=== PATIENT | female | born 1950 | race Caucasian/White ===

== ENCOUNTER 2017-04-01 17:08 | Emergency (ER) | payer MEDICARE ==
[2017-04-01 17:39] LABS: BASOPHILS 0.6 % (0.0-2.0); EOSINOPHILS 2.1 % (0.0-6.0); EOSINOPHILS# 0.2 X 10^3uL (0.0-0.4); HEMATOCRIT 42.5 % (36.0-48.0); HEMOGLOBIN 14.8 g/dL (12.0-16.0); LYMPHOCYTES 32.6 % (20.0-40.0); LYMPHOCYTES# 2.4 X 10^3uL (0.8-3.8); MEAN CELL VOLUME 96.9 fL (80.0-100.0); MEAN CORPUS. HGB CONCENTRATION 34.9 g/dL (32.0-36.0); MEAN CORPUSCULAR HEMOGLOBIN 33.8 pg (29.0-35.0); MEAN PLATELET VOLUME 7.5 fL (7.4-10.4); MONOCYTES 10.3 % (2.0-10.0); MONOCYTES# 0.8 X 10^3uL (0.2-1.0); NEUTROPHILS 54.4 % (54.0-75.0); NEUTROPHILS# 3.9 X 10^3uL (2.6-6.7); PLATELET COUNT 314 X 10^3uL (130-440); RED BLOOD COUNT 4.39 X 10^6uL (4.20-6.10); RED CELL DISTRIBUTION WIDTH 11.9 % (11.5-14.5); WHITE BLOOD COUNT 7.4 X 10^3uL (3.9-10.7)
[2017-04-01] MEDS ORDERED: LORazepam 2 MG/ML INJ ONE (17:43)
[2017-04-01 17:44] LABS: BLOOD UREA NITROGEN 22 mg/dL (7-17); CALCIUM 9.3 mg/dL (8.4-10.2); CHLORIDE 106 mmol/L (98-107); CREATININE 1.1 mg/dL (0.5-1.0); EST GLOMERULAR FILTRATION RATE 53 mL/min; GLUCOSE 107 mg/dL (70-100); MAGNESIUM 2.2 mg/dL (1.6-2.3); POTASSIUM 4.1 mmol/L (3.5-5.1); SODIUM 141 mmol/L (137-145)
[2017-04-01 17:59] LABS: TROPONIN I < 0.012 ng/mL (0.00-0.034)
--- NOTE | 2017-04-01 18:36 | ER PHYSICIAN DOCUMENTATION ---
Physician Documentation [facility] Name:Germaine Lee Age:66 yrs Sex:Female :1950 Arrival Date:04/01/2017 Time:17:07 BedTrauma-C Private MD: Jose Clarke Disposition: 04/03 10:21 Chart complete. tl1 Disposition: 04/01/17 18:08 Discharged to Home/Self Care. Impression: Palpitations. - Condition is Good. - Discharge Instructions: PALPITATIONS. - Medical Reconciliation form form. - Follow up: Brian Smith MD; When: 2 - 3 days; Reason: Recheck today's complaints, Continuance of care. Follow up: Karlene Sage DO; When: 2 - 3 days; Reason: Recheck today's complaints, Continuance of care. - Problem is new. - Symptoms are resolved. - Notes: YOU DO NOT APPEAR TO BE HAVING A WORRISOME CARDIAC EMERGENCY AT THIS TIME, BUT YOU COULD BE HAVING AN ABNORMALLY FAST RHYTHM. A HOLTER MONITOR MAY BE HELPFUL. HPI: 04/01 17:07 This 66 yrs old Female presents to ER via Private Vehicle with complaints of 1 Palpitations and Nausea. 17:07 She has a h/o aortic insufficiency, for which she sees a cracking unit operator at [facility] in [address] She also has a h/o anxiety which has been more problematic, recently over the past few months, and is treated with lexapro for this. This afternoon, at dinner at [facility], she had the abrupt onset of palpitations that were fast and regular, associated with anxiety, dyspnea, nausea and diaphoresis. She was brought here immediately, by her . She denies chest pain. The palpitations have now resolved. She has some RF for CAD including age and tobacco (quit smoking 2 years ago). This is similar to her usual episodes, but the shortness of breath, diaphoresis and dizziness are not typical. She had a holter monitor a year or two ago, shich was apparently non diagnostic.. Historical: - Allergies: SULFA (SULFONAMIDES); Latex; - Home Meds: 1. Lexapro 20 mg oral tab 1 tab once daily 2. aspirin 325 mg oral tab 1 tab once daily 3. atorvastatin 20 mg oral tab 1 tab once daily 4. Acyclovir Oral 5. Ativan 0.5 mg oral tab as needed 6. diltiazem HCl 120 mg oral cpER 1 cap once daily 7. tramadol 50 mg oral tab as needed not to exceed 8 tablets per 24hrs - PMHx: HEART VALVE LEAK; ANXIETY; PANIC ATTACKS; - PSHx: Hysterectomy; - Tetanus: > 10 years. - Ebola Screening: : Patient negative for fever greater than or equal to 101.5 degrees Fahrenheit, and additional compatible Ebola Virus Disease symptoms. Patient denies exposure to infectious person. Patient denies travel to an Ebola-affected area in the 21 days before illness onset. No symptoms or risks identified at this time. . - Immunization history: Flu Vaccine >1 year. - Social history: Smoking status: Patient states former smoker of tobacco. ROS: 17:00 Cardiovascular: Positive for palpitations, Negative for chest pain, edema, orthopnea, tl1 paroxysmal nocturnal dyspnea. 17:00 Abdomen/GI: Positive for nausea, Negative for abdominal pain, vomiting, diarrhea, hematemesis, black/tarry stool, rectal bleeding. 17:00 Neuro: Positive for dizziness, Negative for altered mental status, gait disturbance, headache, loss of consciousness, near syncope. Exam: 17:00 Head/Face: Normocephalic, atraumatic. tl1 17:00 Eyes: Pupils equal round and reactive to light, extra-ocular motions intact. Lids and tl1 lashes normal. Conjunctiva and sclera are non-icteric and not injected. Cornea within normal limits. Periorbital areas with no swelling, redness, or edema. 17:00 Constitutional: The patient appears alert, awake, non-diaphoretic, non-toxic, well developed, well hydrated, well groomed, well nourished, anxious. 17:00 Cardiovascular: Rate: normal, Rhythm: regular, Heart sounds: murmur, systolic, grade 2 over 6, heard in the aortic area. 17:00 Respiratory: Respirations: normal, Breath sounds: are normal. 17:00 Abdomen/GI: Palpation: abdomen is soft and non-tender. 17:00 Skin: Exam negative for acute changes. tl1 17:00 Neuro: Exam negative for acute changes. Vital Signs: 17:21 BP 148 / 62; Pulse 79; Resp 18; Temp 98; Pulse Ox 92% on R/A; Weight 77.11 kg; Height 5 lc ft. 1 in. (154.94 cm); Pain 0/10; 17:39 BP 118 / 59; Pulse 70; Resp 16; Pulse Ox 91% on R/A; Pain 0/10; lc 18:19 BP 119 / 40; Pulse 72; Resp 16; Pulse Ox 93% on R/A; Pain 0/10; lc 18:34 Pulse 70; Resp 16; Pulse Ox 93% on R/A; Pain 0/10; lc 17:21 Body Mass Index 32.12 (77.11 kg, 154.94 cm) MDM: 17:20 Patient medically screened. tl1 17:26 ECG:. tl1 17:34 EKG attached tg 18:30 Differential diagnosis: Dysrhthmia, panic attack. doubt ACS, PE, Other serious tl1 pathology. Data reviewed: vital signs, nurses notes, lab test result(s), cardiac enzymes, CBC, electrolytes, hepatic panel, TSH. Data reviewed: and as a result, I will discharge patient. Data interpreted: senior laboratory technician: Pulse oximetry:. Counseling: I had a detailed discussion with the patient and/or guardian regarding: the historical points, exam findings, and any diagnostic results supporting the discharge/admit diagnosis, lab results, radiology results, the need for outpatient follow up, for a recheck, of today's symptoms, a cracking unit operator. Response to treatment: the patient's symptoms have resolved after treatment, and as a result, I will discharge patient. 04/01 17:59 Order name: CBC AUTO DIF, MDIF/RMOR IF IND; Complete Time: 10:21 EDMS 04/01 18:07 Interpretation: Normal: WHITE BLOOD COUNT 7.4; HEMOGLOBIN 14.8; HEMATOCRIT 42.5; tl1 PLATELET COUNT 314. 04/01 17:59 Order name: BASIC METABOLIC PANEL; Complete Time: 10:21 EDMS 04/01 18:07 Interpretation: SODIUM 141; POTASSIUM 4.1; CHLORIDE 106; CARBON DIOXIDE 23; GLUCOSE tl1 107; BLOOD UREA NITROGEN 22; CREATININE 1.1; EST GLOMERULAR FILTRATION RATE 53; CALCIUM 9.3. 04/01 17:59 Order name: MAGNESIUM; Complete Time: 10:21 EDMS 04/01 18:07 Interpretation: Normal: MAGNESIUM 2.2. tl1 04/01 17:59 Order name: TROPONIN I; Complete Time: 10:21 EDMS /04 18:07 Interpretation: Normal: TROPONIN I < 0.012. tl1 / 18:00 Order name: DDIMER; Complete Time: 10:21 EDMS / 18:07 Interpretation: Normal: DDIMER 219. tl1 /04 18:16 Order name: THYROID STIMULATING HORMONE; Complete Time: 10:21 EDMS 0606 10:21 Interpretation: Normal: THYROID STIMULATING HORMONE 2.50. tl1 0606 11:43 Order name: CHEST; SINGLE VIEW 54370 EDMS /04 17:23 Order name: 12-lead EKG; Complete Time: 17:28 tl1 /04 17:23 Order name: Iv Saline Lock; Complete Time: 17:28 tl1 04/01 17:23 Order name: Place Patient On Monitor; Complete Time: 17:28 tl1 04 17:23 Order name: Pulse Ox Continuous; Complete Time: 17:28 tl1 EC:06 Rate is 75 beats/min. Rhythm is regular, Normal Sinus Rhythm. QRS [place] is Normal. RI tl1 interval is normal at 147 msec. QRS interval is normal at 80 msec. QT interval is normal at 386 msec. Q waves are Present in lead III. Clinical impression: Normal ECG. Dispensed Medications: 17:37 Drug: NS 0.9% 500 ml; Route: IV; Rate: bolus; Site: left antecubital; lc 18:20 Follow up: IV Status: Completed infusion; IV Intake: 500ml 17:37 Drug: Ativan 0.5 mg; Route: IVP; Infused Over: 2 mins; Site: left antecubital; lc 18:20 Follow up: Response: Anxiety decreased Signatures: Rian Clarke RN RN Xenia Euceda RN RN Jose Leon MD MD tl1
--- NOTE | 2017-04-01 18:36 | ER NURSING DOCUMENTATION ---
Nurse's Notes [facility] Name:Germaine Lee Age:66 yrs Sex:Female :1950 Arrival Date:04/01/2017 Time:17:07 BedTrauma-C Private MD: Diagnosis:Palpitations Presentation: 04/01 17:11 Presenting complaint: Patient states: 1 HR AGO AT DINNER C/O PALPITATIONS, DIZZY, lc SWEATY, NAUSEA. NO CHEST PAIN OR SOB. HX OF RECENT PANIC AND ANXIETY ATTACKS. Transition of care: patient was not received from another setting of care. Notified ED Physician of patient's arrival and CC. 17:11 Acuity: [place] 2 lc 17:11 Method Of Arrival: Private Vehicle Triage Assessment: 17:19 General: Appears distressed, Behavior is anxious, cooperative. Pain: Denies pain. lc Neuro: Level of Consciousness is awake, alert, Oriented to person, place, time, event, Seed Corn Production Manager are equal bilaterally Speech is normal, Facial symmetry appears normal. Cardiovascular: Capillary refill < 3 seconds Reports palpitations, Denies Rhythm is sinus rhythm. Respiratory: Airway is patent Respiratory effort is even, unlabored, Respiratory pattern is regular, symmetrical. GI: Abdomen is non- distended Abd is soft and non tender X 4 quads. Reports nausea, Denies diarrhea, vomiting. Derm: Skin is pink, MOIST Skin temperature is warm. Historical: - Allergies: SULFA (SULFONAMIDES); Latex; - Home Meds: 1. Lexapro 20 mg oral tab 1 tab once daily 2. aspirin 325 mg oral tab 1 tab once daily 3. atorvastatin 20 mg oral tab 1 tab once daily 4. Acyclovir Oral 5. Ativan 0.5 mg oral tab as needed 6. diltiazem HCl 120 mg oral cpER 1 cap once daily 7. tramadol 50 mg oral tab as needed not to exceed 8 tablets per 24hrs - PMHx: HEART VALVE LEAK; ANXIETY; PANIC ATTACKS; - PSHx: Hysterectomy; - Tetanus: > 10 years. - Ebola Screening: : Patient negative for fever greater than or equal to 101.5 degrees Fahrenheit, and additional compatible Ebola Virus Disease symptoms. Patient denies exposure to infectious person. Patient denies travel to an Ebola-affected area in the 21 days before illness onset. No symptoms or risks identified at this time. . - Immunization history: Flu Vaccine >1 year. - Social history: Smoking status: Patient states former smoker of tobacco. Screenin:22 Infectious Disease Risk None. Abuse screen: Denies threats or abuse. Denies injuries lc from another. Nutritional screening: No deficits noted. Assessment: 17:21 See Triage Assessment done by same RN. GI: Denies vomiting. lc 17:40 GI: Denies nausea, vomiting. lc 17:40 Reassessment: Patient denies pain at this time. Patient states feeling better. Patient lc states symptoms have improved. Patient appears in no apparent distress at this time. MONITOR IN NSR, FEELING MORE RELAXED, VSS, LITES DIMMED, AT BEDSIDE.. 18:33 Reassessment: Patient states symptoms have improved. Patient appears in no apparent lc distress at this time. feels ready for d/c, monitor in NSR. Vital Signs: 17:21 BP 148 / 62; Pulse 79; Resp 18; Temp 98; Pulse Ox 92% on R/A; Weight 77.11 kg; Height 5 lc ft. 1 in. (154.94 cm); Pain 0/10; 17:39 BP 118 / 59; Pulse 70; Resp 16; Pulse Ox 91% on R/A; Pain 0/10; lc 18:19 BP 119 / 40; Pulse 72; Resp 16; Pulse Ox 93% on R/A; Pain 0/10; lc 18:34 Pulse 70; Resp 16; Pulse Ox 93% on R/A; Pain 0/10; lc 17:21 Body Mass Index 32.12 (77.11 kg, 154.94 cm) ED Course: 17:06 EKG done. (by ED staff). Reviewed by Jose Costa MD. jt 17:07 Patient arrived in ED. em3 17:11 Xenia Wells, RN is Primary Nurse. lc 17:12 Triage completed. lc 17:20 Jose Costa MD is Attending Physician. tl1 17:22 Inserted peripheral IV: 20 gauge in left antecubital area and blood collected. lc 17:22 Valuables Remains with patient Bed in low position. Call light in reach. Adult w/ lc patient. furniture sprayer on. Pulse ox on. 17:34 EKG attached tg 18:00 Port Xray Completed. pm1 18:08 Brian Smith MD is Referral Physician. tl1 18:09 Zehr, Karlene, DO is Referral Physician. tl1 Administered Medications: 17:37 Drug: NS 0.9% 500 ml; Route: IV; Rate: bolus; Site: left antecubital; lc 18:20 Follow up: IV Status: Completed infusion; IV Intake: 500ml lc 17:37 Drug: Ativan 0.5 mg; Route: IVP; Infused Over: 2 mins; Site: left antecubital; lc 18:20 Follow up: Response: Anxiety decreased lc Intake: 18:20 IV: 500ml; Total: 500ml. Outcome: 18:08 Discharge ordered by . tl1 18:34 Discharged to home ambulatory, with family. 18:34 Condition: stable 18:34 Discharge Assessment: Patient awake, alert and oriented x 3. No cognitive and/or functional deficits noted. Patient verbalized understanding of disposition instructions. 18:34 Discharge instructions given to patient, significant other, Instructed on discharge instructions, follow up and referral plans. medication usage, Demonstrated understanding of instructions, medications, HAS ATIVAN AT HOME 18:35 IV D/Chandan 18:36 Patient left the ED. Signatures: Rian Clarke RN RN Xenia Wells RN RN Daniella Flowers 1 Charly Soliz 3 Jose Costa MD MD tl1 Janice Long
--- NOTE | 2017-04-03 10:52 | RADIOLOGY REPORT ---
A limited single portable view of the chest, without prior films for comparison , demonstrates the heart and vessels to be unremarkable. The lung francisco are clear. No infiltrate, fluid or pneumothorax is seen. IMPRESSION: Unremarkable limited single portable view of the chest. MTDD
== END 2017-04-01 18:36 | disposition home or self-care (01) ==
LOC: ER 17:08
DX: R00.2 Palpitations (principal); R11.0 Nausea; R42 Dizziness and giddiness; R01.1 Cardiac murmur, unspecified; F41.9 Anxiety disorder, unspecified; Z79.899 Other long term (current) drug therapy; Z79.82 Long term (current) use of aspirin
CPT/HCPCS: 71010; 80048; 83735; 84443; 84484; 85025; 85379; 93005; 96361; 96374; 99284; J2060